=== PATIENT | male | born 1965 | race Caucasian/White ===

== ENCOUNTER 2024-03-16 18:40 | Inpatient (IN) | payer OTHER ==
[~2024-03-16] VITALS: Ht 182.9 cm; Wt 137.0 kg
[2024-03-16 18:40] VITALS: BP_SYST 144; PULSE 78; RESP 18; TEMP 98.2; O2SAT 99
[2024-03-16] MEDS ORDERED: iohexoL 350 mgI/mL, 100 ML INFUS..BTL IV ONE (18:58)
[2024-03-16 19:20] LABS: BASOPHILS # (AUTO) 0.2 K/uL (0.0-0.2); BASOPHILS % (AUTO) 2.5 % (0.0-2.0); EOSINOPHILS # (AUTO) 0.1 K/uL (0.0-0.4); HEMATOCRIT 42.9 % (36-54); LYMPHOCYTES # (AUTO) 1.7 K/uL (1.0-5.5); LYMPHOCYTES % (AUTO) 24.3 % (20.5-51.5); MEAN CORPUSCULAR HEMOGLOBIN 34 pg (27-31); MEAN CORPUSCULAR HGB CONC 35 % (32-36); MEAN CORPUSCULAR VOLUME 97 fL (79.0-98.0); MONOCYTES # (AUTO) 0.5 K/uL (0.0-1.0); MONOCYTES % (AUTO) 6.4 % (1.7-9.3); NEUTROPHILS # (AUTO) 4.6 K/uL (1.8-7.7); NEUTROPHILS % (AUTO) 64.8 % (40.0-70.0); PLATELET COUNT (AUTO) 224 K/uL (130-430); RED BLOOD CELL COUNT(AUTO) 4.41 MIL/uL (4.2-6.2); RED CELL DISTRIBUTION WIDTH 12.4 % (9.0-15.0); WHITE BLOOD COUNT (AUTO) 7.1 K/uL (4.8-10.8)
[2024-03-16 19:33] LABS: PROTHROMBIN TIME 10.9 SECS (9.5-12.5)
[2024-03-16] MEDS ORDERED: AMLO2.5T2 PO (19:45)
[2024-03-16] MEDS ORDERED: ATOR-449 PO (19:45)
[2024-03-16 19:53] LABS: ANION GAP 5 (5-15); CALCIUM 8.9 mg/dL (8.4-11.0); CARBON DIOXIDE 32 mmol/L (23-29); CHLORIDE 106 mmol/L (98-107); GFR AFRICAN AMERICAN 99 mL/min (>90); GLUCOSE 107 mg/dL (74-106); POTASSIUM 3.8 mmol/L (3.5-5.1); SODIUM SERUM 143 mmol/L (136-145); UREA NITROGEN, BLOOD 16 mg/dL (8-21)
[2024-03-16 19:56] LABS: GFR NON AFRICAN-AMERICAN 82 mL/min (>90)
[2024-03-16 20:42] LABS: HEMOGLOBIN A1C 5.74 % (<5.7)
[2024-03-16 21:24] LABS: BARBITURATE, URINE NEGATIVE (NEG <=200); BENZODIAZEPINE, URINE NEGATIVE (NEG <=150); CANNABINOID, URINE NEGATIVE (NEG <=50); COCAINE, URINE NEGATIVE (NEG <=150); METHAMPHETAMINES SCREEN,URINE NEGATIVE (NEG <=500); OPIATE, URINE NEGATIVE (NEG <=100); PHENCYCLIDINE SCREEN,URINE NEGATIVE (NEG <=25); UR TRICYCLIC ANTIDEPRESSANTS NEGATIVE (NEG <=300); URINE AMPHETAMINE NEGATIVE (NEG <=500); URINE METHADONE NEGATIVE (NEG <=200); URINE OXYCODONE SCREEN NEGATIVE (NEG <=100)
[2024-03-16 21:28] LABS: CHOLESTEROL 146 mg/dL (<200); HDL CHOLESTEROL 67 mg/dL (>45); TRIGLYCERIDES 67 mg/dL (30-150)
[2024-03-16 21:33] LABS: BILIRUBIN,URINE NEGATIVE (NEGATIVE); BLOOD, URINE NEGATIVE (NEGATIVE); CLARITY/URINE CLEAR (CLEAR); COLOR,URINE YELLOW (YELLOW); GLUCOSE,URINE NEGATIVE (NEGATIVE); KETONES,URINE NEGATIVE (NEGATIVE); LEUKOCYTE ESTERASE ,URINE NEGATIVE (NEGATIVE); NITRITE, URINE NEGATIVE (NEGATIVE); PH,URINE 6.5 (5.0-8.0); PROTEIN URINE NEGATIVE (NEGATIVE); UROBILINOGEN,URINE 0.2 (0.2-1.0)
[2024-03-16] MEDS: CLOPIDOGREL BISULFATE 75 MG TABLET PO ONE (22:27)
[2024-03-16] MEDS: ASPIRIN 325 MG TABLET PO ONE (22:28)
[2024-03-17] VITALS (9 sets, daily range): BP systolic 129–142; PULSE 53–66; RESP 16–18; TEMP 97.3–98.8; O2SAT 95–98
[2024-03-17] MEDS: ASPIRIN 81 MG TAB.CHEW PO SCH (08:21)
[2024-03-17] MEDS ORDERED: INSULIN REGULAR, HUMAN 100 UNITS/ML, 3 ML VIAL (humuLIN R) SUBCUT PRN (10:00)
[2024-03-17] MEDS ORDERED: DEXTROSE 50% JECT 50 ML DISP.SYRIN IVP PRN (10:00)
[2024-03-17] MEDS: IPRATROPIUM/ALBUTEROL SULFATE 3 ML AMPUL.NEB (DUONEB) INH SCH (11:00)
[2024-03-17] MEDS: NICOTINE 21 MG/24 HR PATCH.TD24 TD ONE (13:31)
[2024-03-17] MEDS: ATORVASTATIN 20 MG TABLET PO ONE (13:31)
[2024-03-18] MEDS ORDERED: amLODIPine BESYLATE 5 MG TABLET PO SCH (09:00)
[2024-03-18] MEDS ORDERED: NICOTINE 21 MG/24 HR PATCH.TD24 TD SCH (09:00)
[2024-03-18] MEDS ORDERED: ATORVASTATIN 20 MG TABLET PO SCH (09:00)
== END 2024-03-18 23:00 | disposition home or self-care (01) | DRG 69 ==
LOC: SED 18:40 → STU 03-17 00:05
PROVIDERS: ADMIT Internal Medicine; ATTEND Internal Medicine
DX: G45.9 Transient cerebral ischemic attack, unspecified (principal); Z68.41 Body mass index [BMI] 40.0-44.9, adult; J44.1 Chronic obstructive pulmonary disease with (acute) exacerbation; I10 Essential (primary) hypertension; E66.01 Morbid (severe) obesity due to excess calories; E78.5 Hyperlipidemia, unspecified; R73.03 Prediabetes; J43.9 Emphysema, unspecified; F17.200 Nicotine dependence, unspecified, uncomplicated; Z88.8 Allergy status to other drugs, medicaments and biological substances; Z79.899 Other long term (current) drug therapy; Z88.5 Allergy status to narcotic agent
CPT/HCPCS: 36415; 70450; 70496; 70498; 70551; 71045; 71250-TC; 80048; 80061; 80307; 81001; 81003; 83037; 84484; 85025; 85610; 85730; 86886; 86900; 86901; 93005; 93306; 94070; 97112-GP; 97116-GP; 99291; G0378; Q9967